=== PATIENT | male | born 1965 | race Caucasian/White ===

== ENCOUNTER 2017-04-20 18:54 | Observation (INO) ==
[2017-04-20] MEDS ORDERED: Aspirin 81 MG TAB.CHEW PO ONE (19:10)
--- NOTE | 2017-04-20 19:10 | Emergency Department Note ---
Disposition Clinical Impression: Chest pain Qualifiers: Chest pain type: precordial pain Qualified Code(s): R07.2 - Precordial pain Disposition: Admitted As Inpatient Condition: Good Time of Disposition: 22:08 General Adult HPI - General Chief complaint: ED Chest Pain Stated complaint: chest pain Time Seen by Provider: 04/20/17 18:59 Source: patient Limitations: no limitations Nursing Notes Reviewed: Yes Vital Signs Reviewed: Yes - History of Present Illness HPI Narrative: 51-year-old male nonsmoker complains of left-sided chest and shoulder pain that he noticed first started 6 days ago. He relates it to using a chain saw while at work. He states the pain has been constant since then. He had no relief with Aleve. It is worse when lying down. He states it has been constant started. Approximately 6 hours prior to arrival today he was driving his car when he had a 30 minute episode of diaphoresis which concerned him. He denies having any other symptoms at that time.. He denies any worsening of his pain on exertion, dyspnea, nausea, vomiting. Pain Scale: 6 - Related Data Home Medications Medication Instructions Recorded Confirmed Atorvastatin Calcium [Lipitor] 20 mg PO DAILY 04/20/17 04/20/17 DULoxetine [Cymbalta] 30 mg PO DAILY 04/20/17 04/20/17 Allergies Allergy/AdvReac Type Severity Reaction Status Date / Time No Known Allergies Allergy Verified 04/20/17 18:56 All systems ED: reviewed and negative except as stated. Constitutional: Denies: fever, chills Eyes: Denies: eye pain ENT ED: Denies: ear pain Cardiovascular: Reports: as per HPI Respiratory: Reports: as per HPI. Denies: cough, hemoptysis, sputum production Gastrointestinal: Denies: abdominal pain Genitourinary: Denies: dysuria Musculoskeletal: Denies: back pain Integumentary: Denies: rash Neurological: Denies: headache, weakness Psychiatric: Denies: anxiety Endocrine: Denies: fatigue Hematological/Lymphatic: Denies: easy bleeding Allergic/Immunologic: Denies: facial swelling Past Medical History - Past Medical History Medical history: Reports: hyperlipidemia - Social History Smoking Status: Never smoker Smokeless Tobacco Status: No Alcohol use: Reports: none Drug use: Reports: none Physical Exam - General Limitations: no limitations General appearance: alert, in no apparent distress - Eye Eye exam: Present: EOMI - Expanded Eye Exam Sclera/Conjunctival: right: hemorrhage - ENT ENT exam: normal exam, mucous membranes moist - Neck Neck exam: Present: full ROM. Absent: tenderness - Chest Chest inspection: Present: normal inspection, symmetric chest wall rise - Respiratory Respiratory exam: Present: normal lung sounds bilaterally. Absent: respiratory distress - Cardiovascular Cardiovascular exam: Present: regular rate, normal rhythm - Abdominal Exam Abdominal exam: Present: soft, Non-Tender - Extremities Exam Extremities exam: Present: normal inspection, full ROM, normal capillary refill - Back Exam Back exam: Present: normal inspection, full ROM - Neurological Exam Neurological exam: Present: alert, oriented X3 - Psychiatric Psychiatric exam: Present: normal affect, normal mood - Skin Skin exam: Present: warm, dry, intact, normal color. Absent: rash, cyanosis, diaphoresis Course Course Narrative: 51-year-old male nonsmoker complains of left-sided chest and shoulder pain that he noticed first started 6 days ago. He relates it to using a chain saw while at work. He states the pain has been constant since then. He had no relief with Aleve. It is worse when lying down. He states it has been constant started. Approximately 6 hours prior to arrival today he was driving his car when he had a 30 minute episode of diaphoresis which concerned him. He denies having any other symptoms at that time.. He denies any worsening of his pain on exertion, dyspnea, nausea, vomiting. Patient seen and examined. Vitals within normal limits. His pain is described over his left anterior chest into his shoulder and posterior shoulder. Does appear to be worse with palpation, as well as with extension, abduction of the shoulder. Patient declines analgesics at this point. Patient's cardiac risk factors include hyperlipidemia, and family history of heart disease. Workup initiated. - Reevaluation(s) Reevaluation #1: Patient's workup unremarkable. Patient did have some relief this pain after nitroglycerin. Discussed with Dr. Rodarte, who agreed with workup and admission for cardiac rule out. Patient was discussed with and accepted by hospitalist Dr. Hudson Time: 22:07 Vital Signs Temperature 97.8 F 04/20/17 18:55 Pulse Rate 62 04/20/17 18:55 Respiratory Rate 18 04/20/17 18:55 Blood Pressure 138/95 04/20/17 18:55 O2 Sat by Pulse Oximetry 94 04/20/17 18:55 Temperature 98.3 F 04/21/17 04:04 Pulse Rate 59 04/21/17 04:04 Respiratory Rate 22 04/21/17 04:04 Blood Pressure 132/92 04/21/17 04:04 O2 Sat by Pulse Oximetry 94 04/21/17 04:04 Oxygen Delivery Oxygen Delivery Room Air Medical Decision Making - MDM Narrative Medical decision making narrative: Chest X-Ray 04/20/17 19:10 IMPRESSION: No acute process. D/ / Jarrod Rosas MD / Jarrod Rosas MD Interpreting Provider: Jarrod Rosas MD Shoulder X-Ray 04/20/17 19:23 IMPRESSION: No acute abnormality. D/ / Seymour Perry MD / Seymour Perry MD Interpreting Provider: Seymour Perry MD T Score for Major Cardiac Events from [email or web address] on 04/20/2017 All calculations should be rechecked by clinician prior to use RESULT SUMMARY: 3 points Low Score (0-3 points) Risk of MACE of 0.9-1.7%. INPUTS: History > 1 = Moderately suspicious EKG > 0 = Normal Age > 1 = 45-65 Risk factors > 1 = 1-2 risk factors Initial troponin > 0 = normal limit All Lab Results (24 Hours) 04/20/17 04/20/17 04/20/17 Range/Units 19:37 19:37 19:37 WBC 10.5 (4.3-11.1) K/mcL RBC 5.10 (4.19-5.50) M/mcL Hgb 14.5 (12.9-16.9) g/dL Hct 44.4 (37.5-50.1) % MCV 87.1 (83.0-100.0) fL MCH 28.4 (28.0-33.3) pg MCHC 32.7 (31.6-35.5) g/dL RDW 12.5 (11.5-14.5) % Plt Count 295 (140-400) K/mcL MPV 9.1 L (9.4-12.4) fL Immature Gran % 0.3 (0-4) % Seg Neutrophils % 61.3 % Lymphocytes % 26.5 % Monocytes % 9.8 % Eosinophils % 1.6 % Basophils % 0.5 % Neutrophils # 6.4 (1.6-8.9) K/mcL Lymphocytes # 2.8 (0.6-4.6) K/mcL Monocytes # 1.0 (0.0-1.3) K/mcL Eosinophils # 0.2 (0.0-0.6) K/mcL Basophils # 0.1 (0.0-0.2) K/mcL Immature Plt Fraction 2.3 (1.1-6.1) % Sodium 141 (136-145) mEq/L Potassium 4.0 (3.5-4.5) mEq/L Chloride 107 (98-109) mEq/L Carbon Dioxide 29 (19-29) mEq/L BUN 17 (8-26) mg/dL Creatinine 1.12 (0.72-1.25) mg/dL Est GFR ( Amer) > 60 (> 60) Est GFR (Non-Af Amer) > 60 (> 60) BUN/Creatinine Ratio 15 (6-26) Glucose 88 (70-99) mg/dL Calculated Osmolality 293 (280-300) Calcium 9.4 (8.6-10.8) mg/dL Troponin I 0.00 (0-0.03) ng/mL - Lab Data Lab results reviewed: Yes I reviewed the patient's lab results. Result diagrams: 04/20/17 19:37 04/21/17 01:39 Lab Results 04/20/17 04/20/17 04/20/17 Range/Units 19:37 19:37 19:37 WBC 10.5 (4.3-11.1) K/mcL RBC 5.10 (4.19-5.50) M/mcL Hgb 14.5 (12.9-16.9) g/dL Hct 44.4 (37.5-50.1) % MCV 87.1 (83.0-100.0) fL MCH 28.4 (28.0-33.3) pg MCHC 32.7 (31.6-35.5) g/dL RDW 12.5 (11.5-14.5) % Plt Count 295 (140-400) K/mcL MPV 9.1 L (9.4-12.4) fL Immature Gran % 0.3 (0-4) % Seg Neutrophils % 61.3 % Lymphocytes % 26.5 % Monocytes % 9.8 % Eosinophils % 1.6 % Basophils % 0.5 % Neutrophils # 6.4 (1.6-8.9) K/mcL Lymphocytes # 2.8 (0.6-4.6) K/mcL Monocytes # 1.0 (0.0-1.3) K/mcL Eosinophils # 0.2 (0.0-0.6) K/mcL Basophils # 0.1 (0.0-0.2) K/mcL Immature Plt Fraction 2.3 (1.1-6.1) % Sodium 141 (136-145) mEq/L Potassium 4.0 (3.5-4.5) mEq/L Chloride 107 (98-109) mEq/L Carbon Dioxide 29 (19-29) mEq/L BUN 17 (8-26) mg/dL Creatinine 1.12 (0.72-1.25) mg/dL Est GFR ( Amer) > 60 (> 60) Est GFR (Non-Af Amer) > 60 (> 60) BUN/Creatinine Ratio 15 (6-26) Glucose 88 (70-99) mg/dL Calculated Osmolality 293 (280-300) Calcium 9.4 (8.6-10.8) mg/dL Troponin I 0.00 (0-0.03) ng/mL - Radiology Data Radiology results reviewed: Yes I reviewed the patient's radiology results. Attestation Statement - Attestation Attestation: I, Garrett Rodriguez, examined this patient and my medical decision-making was reviewed with the TRUCK LEASING MANAGER/PA/Advanced Practice Nurse/Resident Physician. I agree with the documented findings, disposition and treatment plan as described except to the extent set forth below. 51-year-old male presents with chest pain to the left upper chest. Patient states his symptoms have been present intermittently over the past 3-4 days. Patient states he thought he had pulled a muscle in his left shoulder and left upper chest after he was carrying a chain saw through the [employer] for work. Patient states that he has used this chain saw multiple times in the past and has not had difficulty. Today the patient developed diaphoresis while sitting in a air-conditioned car. Patient has cardiac risk factors of elevated cholesterol and a family history cardiac disease. Initial troponin was negative. EKG showed 57 sinus bradycardia without evidence of STEMI. Patient is comfortable with the plan for admission to the hospital for further evaluation of his chest pain to rule out ACS.
[2017-04-20] MEDS ORDERED: Nitroglycerin 0.4 MG TAB.SUBL SL PRN (19:26)
[2017-04-20 19:45] LABS: Basophils # 0.1 K/mcL (0.0-0.2); Basophils % 0.5 %; Eosinophils # 0.2 K/mcL (0.0-0.6); Eosinophils % 1.6 %; Hematocrit 44.4 % (37.5-50.1); Hemoglobin 14.5 g/dL (12.9-16.9); Immature Granulocytes % 0.3 % (0-4); Immature Platelets 2.3 % (1.1-6.1); Lymphocytes # 2.8 K/mcL (0.6-4.6); Lymphocytes % 26.5 %; Mean Corpuscular HGB Conc 32.7 g/dL (31.6-35.5); Mean Corpuscular Hemoglobin 28.4 pg (28.0-33.3); Mean Corpuscular Volume 87.1 fL (83.0-100.0); Mean Platelet Volume 9.1 fL (9.4-12.4); Monocytes % 9.8 %; Neutrophils # 6.4 K/mcL (1.6-8.9); Platelet Count 295 K/mcL (140-400); Red Cell Distribution Width 12.5 % (11.5-14.5); Segmented Neutrophils % 61.3 %
[2017-04-20 19:57] LABS: BUN/Creatinine Ratio 15 (6-26); Blood Urea Nitrogen 17 mg/dL (8-26); Calcium 9.4 mg/dL (8.6-10.8); Carbon Dioxide 29 mEq/L (19-29); Chloride 107 mEq/L (98-109); Glucose 88 mg/dL (70-99); Osmolality,Calculated 293 (280-300); Sodium 141 mEq/L (136-145); eGFR For African Americans > 60 (> 60); eGFR For Non-African Americans > 60 (> 60)
--- NOTE | 2017-04-20 23:44 | Internal Med History&Physical ---
Date of Encounter: 04/20/17 Time of Encounter: 23:42 Assessment and Plan (1) DVT prophylaxis Current visit: Yes Status: Acute Encourage early ambulation. No pharmacological prophylaxis needed. (2) Chest pain Current visit: Yes Status: Acute Atypical chest pain in a patient with cardiovascular risk factors including gender, hyperlipidemia and positive family history. We will place patient on observation. Trend troponin. Stress test in the morning to rule out ACS. Qualifiers: Chest pain type: precordial pain Qualified Code(s): R07.2 - Precordial pain (3) Hypercholesterolemia Current visit: Yes Status: Acute We will check lipid panel. We will continue with atorvastatin. Internal Medicine - H&P: HPI Chief complaint: Chest pain Admitted From: Emergency Dept Plans for Post Hospital Care: Hospice - Home History of present illness: Mr. Lee is a 51 year old male with no significant past medical history who presented to the hospital due to chest pain. A week ago he performed some strenuous activity whereby he cut 7 miles of [place] using a chainsaw. He started having sore muscles the next day and his shoulders and chest. Today his pain persisted, he describes it as aching located in the left upper chest, shoulder and radiating to the back, feels like sore muscles, it was not relieved by nitroglycerin he received in the emergency room. A 10 point review of systems was negative. Family history positive for coronary artery disease in the patient's mother had an acute AR at age 62. Social history: Denies tobacco alcohol and drug use. Past Med Surg Social Fam HX - Past Medical History Medical history: hyperlipidemia Psychiatric history: no psych history - Social History Smoking Status: Never smoker Smokeless Tobacco Status: No Alcohol use: none Drug use: none - Family History Mother Name: Nati Rosas Living Status: Age at : 82 Hx Family Cardiac Disorders: Yes (htn, heart surgery) Hx Family Respiratory Disorders: No Hx Family Cancer: No Hx Family GI Disorders: No Hx Family Genitourinary Disorders: No Hx Family Endocrine Disorder: Yes Hx Family Musculoskeletal Disorders: No Hx Family Neuromuscular Disorders: No Hx Family Neurologic Disorders: No Hx Family HEENT Disorders: No Hx Family Autoimmune Disorders: No Hx Family Reproductive Disorders: No Hx Family Psychosocial Disorders: No Hx Family Medical Disorders: No Internal Medicine - H&P: Meds Atorvastatin Calcium [Lipitor] 20 mg PO DAILY 04/20/17 [History] DULoxetine [Cymbalta] 30 mg PO DAILY 04/20/17 [History] Allergies No Known Allergies Allergy (Verified 04/20/17 18:56) All Systems PM: A 10-system review of systems was performed and is negative for pertinent findings except as documented above in the HPI. - Constitutional Vitals: Temp Pulse Resp BP Pulse Ox 98.5 F 51 18 123/88 96 04/20/17 22:51 04/20/17 22:51 04/20/17 22:51 04/20/17 22:51 04/20/17 22:51 - Head Head exam: Present: atraumatic, normocephalic - Respiratory Respiratory exam: Present: CTAB. Absent: accessory muscle use, rales, rhonchi, wheezes - Cardiovascular Cardiovascular exam: Present: RRR, +S1, +S2. Absent: diastolic murmur, gallop, rubs, systolic murmur - GI/Abdominal GI/Abdominal exam: Present: normal bowel sounds, soft, no peritoneal signs. Absent: distended, tenderness - Extremities Exam Extremities exam: Present: warm, radial pulses palpable and symetrical. Absent : calf tenderness, cyanotic, pedal edema - Skin Skin exam: Present: dry, intact Internal Med - H&P Results - Labs CBC & Chem 7: 04/20/17 19:37 04/20/17 19:37 - EKG Data -: EKG Interpreted by Myself EKG shows normal: sinus rhythm (Sinus bradycardia), axis, intervals, ST-T waves - EKG Data Prior EKG available for review: yes When compared to previous EKG: there is no significant change
[2017-04-20] MEDS ORDERED: Acetaminophen 325 MG TABLET PO PRN (23:49)
[2017-04-21 02:11] LABS: BUN/Creatinine Ratio 17 (6-26); Blood Urea Nitrogen 19 mg/dL (8-26); Calcium 9.2 mg/dL (8.6-10.8); Carbon Dioxide 25 mEq/L (19-29); Chloride 108 mEq/L (98-109); Chol/HDL Ratio 4.9 (0-4.9); Cholesterol 176 mg/dL (< 200); Glucose 97 mg/dL (70-99); HDL Cholesterol 36 mg/dL (40-59); LDL Cholesterol,Calculated 121 mg/dL (0-99); Osmolality,Calculated 290 (280-300); Sodium 139 mEq/L (136-145); Triglycerides 96 mg/dL (< 150); eGFR For African Americans > 60 (> 60); eGFR For Non-African Americans > 60 (> 60)
[2017-04-21 02:12] LABS: Potassium 4.3 mEq/L (3.5-4.5)
[2017-04-21 11:16] VITALS: BP 114/71
--- NOTE | 2017-04-21 11:52 | Nuclear Medicine Stress Report ---
Exercise Nuclear Stress Name: Quique Lee Date of Study: 04/21/2017 Date: 1965 Ht: 68.0 in Medical Record#: [id number] Age: 51 Wt: 188.0 lb Gender: Male Order #: [id number] Location: [facility] IP Room: [facility] Supervising Provider: Klaus Chacon CNP Reading Physician: Lexi Bazan DO Ordering Physician: Rosie Moore MD Primary Care Physician: Jared Iglesias MD Stress Technologist: Dayana Alcantara RRT Customer Service Administrator: Veronica Robles Indications: Chest Pain Impression: Resting perfusion defects improve during stress, suggesting the presence of artifact. No definitive evidence for ischemia or infarct. Exercise capacity was excellent. Normal blood pressure response to exercise. No stress induced dysrhythmia. Visual TID is present. Recommend clinical correlation. History: Hypercholesteremia Stress Test Summary: Stress Test Type: Treadmill Protocol: Salbador Baseline Information: Initial Heart Rate: 69 Blood Pressure: 112/72 Stress Information: Stress Time: 10 min 21 sec Test Terminated Due to (primary): Fatigue Maximum Blood Pressure: 146/90 Maximum Heart Rate: 158 Percent Maximum Heart Rate Achieved: 93 Double Product: [id number] METS Reached: 12.8 Symptoms: Fatigue Nuclear Summary: SPECT myocardial perfusion imaging using Tc99m Sestamibi given intravenously was performed at rest and following cardiac stress testing. The resting images were obtained following initial dose of 10 mCi. Following stress an additional dose of 32.5 mCi was given at peak exercise or 30 seconds post regadenoson infusion. Medication Given: Time Medication Dose Units Route Findings: Stress Note * Resting ECG demonstrated normal sinus rhythm with nonspecific ST abnormalities. * Exercise ECG is non diagnostic for ischemia due to non-specific ST and T wave changes. * No arrhythmias were noted during stress. * Patient had no chest pain during stress. * The exercise capacity was excellent. Hemodynamic responses * Normal hemodynamic responses to exercise. Study Quality * Study quality was challenging. Left Ventricle * The left ventricle is not dilated. Gated EF % * Gated EF = 65%. NORMALS * Normal wall motion. TID * There is transient ischemic dilatation. Lung Uptake * There is no evidence of increase lung uptake. PERFUSION * At rest there is mild intensity decreased perfusion in the distal anterior wall, apex and inferior wall. These findings improve on stress imaging. Findings suggest the presence of artifact. * Other segments demonstrate normal rest and stress perfusion. Updated by Lexi Bazan on 04/21/2017 11:42:21 AM electronically signed on 04/21/2017 11:45:59 AM with status of Final
--- NOTE | 2017-04-21 13:06 | Discharge Summary ---
Date of Encounter: 04/21/17 Time of Encounter: 10:15 - Discharge Diagnosis (1) Chest pain Priority: Primary Status: Resolved Qualifiers: Chest pain type: precordial pain Qualified Code(s): R07.2 - Precordial pain (2) DVT prophylaxis Priority: Secondary Status: Acute (3) Hypercholesterolemia Priority: Secondary Status: Chronic - Discharge Medications Home Medications: Atorvastatin Calcium [Lipitor] 20 mg PO DAILY 04/20/17 [History] DULoxetine [Cymbalta] 30 mg PO DAILY 04/20/17 [History] Allergies/Adverse Reactions: Allergies No Known Allergies Allergy (Verified 04/20/17 18:56) Procedures/tests Complete & Pending: Procedures Performed prior 72 hours Category Date Time Status NM april perf SPECT multi [NM] Routine Exams 04/21/17 03:17 Taken SP exercise nuclear stress Routine Y 04/21/17 07:40 Completed Date of admission: 04/20/17 22:26 Primary care physician: Jared Iglesias Jr, MD Discharging clinician: Rosie Moore Anticipated date of discharge: 04/21/17 - Patient Status Disposition: Home, Self-Care Condition: Good Functional capacity at discharge: independent ambulation Overall status at discharge: patient is back to baseline - Discharge Instructions Instructions: Chest Pain (DC) Follow Up With: Jared Iglesias Jr, MD [Primary Care Provider] - Additional Instructions: Please follow up with your primary care physician within one week after your discharge from the hospital. Please resume all your home medications as prescribed by your primary care physician. - Diet and Activity Activity: resume usual activities as tolerated Diet: low fat, low cholesterol Hospital course: Mr. Lee is a 51 year old male with PMH Of hypercholesterolemia presents to the ER for evaluation of chest pain. Pt underwent nuclear stress test and was negative for ischemic perfusion defect. Pt has been chest pain free and reported of doing extensive labor contributing to his chest pain. Reported of pain being relieved with him taking Aleve at home. At this time he is hemodynamically stable and chest pain free. He is stable for discharge. Pt is to follow up with PCP after his discharge. Patient demonstrates understanding of his diagnosis and agrees with the discharge care and plan. - Time Spent with Patient Total time spent providing and/or coordinating discharge services: Less than 30 minutes - Constitutional Vitals: Temp Pulse Resp BP Pulse Ox 97.8 F 47 16 114/71 95 07/26/17 11:13 04/21/17 11:13 04/21/17 11:13 04/21/17 11:13 04/21/17 11:13 General appearance: Present: cooperative, A&O X 3, pleasant, no acute distress, answers questions appropriately - Head Head exam: Present: atraumatic, normocephalic - Eye Eye exam: Present: normal appearance, conjuntiva pink, sclera anicteric - Respiratory Respiratory exam: Present: CTAB. Absent: accessory muscle use, rales, rhonchi, wheezes - Cardiovascular Cardiovascular exam: Present: bradycardia (asymptomatic), +S1, +S2. Absent: diastolic murmur, gallop, rubs, systolic murmur - GI/Abdominal GI/Abdominal exam: Present: normal bowel sounds, soft, no peritoneal signs. Absent: distended, tenderness - Extremities Exam Extremities exam: Present: warm, radial pulses palpable and symetrical. Absent : calf tenderness, cyanotic, pedal edema - Neurological Exam Neurological exam: Present: alert, oriented X3 - Psychiatric Psychiatric exam: Present: normal affect, normal mood
--- NOTE | 2017-04-21 14:06 | Electrocardiograph Report ---
[address] [address] Test Date: 2017-04-20 Pat Name: Quique Lee Department: 105 Room: 2NE23 Gender: M Aws Consultant: JORGE LUIS : 1965 Requested By: Mak Whalen Order Number: [id number] Reading MD: Salbador Randolph MD Measurements Intervals [place] Rate: 57 P: 22 AL: 147 QRS: -19 QRSD: 87 T: 4 QT: 414 QTc: 409 Interpretive Statements SINUS BRADYCARDIA Electronically Signed On 04-21-2017 14:05:11 EDT by Salbador Randolph MD
== END 2017-04-21 13:26 | disposition home or self-care (01) ==
LOC: EMEROO 18:54 → 2NENU 18:54
PROVIDERS: ADMIT Internal Medicine; ATTEND Internal Medicine